=== PATIENT | male | born 1985 | race Caucasian/White ===

== ENCOUNTER 2019-10-31 07:08 | Day surgery (SDC) | payer OTHER, SELFPAY ==
[~2019-10-31] VITALS: Ht 180.3 cm; Wt 111.1 kg
[2019-10-31] MEDS ORDERED: SIMETHICONE 40 MG/0.6 ML ML ONE (07:32)
[2019-10-31] MEDS ORDERED: fentaNYL CITRATE/PF 100 MCG/2 ML AMP ONE (07:32)
[2019-10-31] MEDS ORDERED: MIDAZOLAM HCL 5 MG/5 ML VIAL ONE (07:32)
[2019-10-31] MEDS ORDERED: MEPERIDINE HCL/PF 100 MG/ML AMP ONE (08:42)
[2019-10-31 08:55] VITALS: BP_SYST 121
[2019-10-31] MEDS ORDERED: DIPHENHYDRAMINE INJ 50 MG/ML VIAL ONE (08:58)
== END 2019-10-31 09:40 | disposition home or self-care (01) ==
LOC: SDS 07:08 → SMU 07:10 → SDS 09:40
PROVIDERS: ATTEND Internal Medicine Gastroenterology
DX: R13.10 Dysphagia, unspecified (principal); K29.70 Gastritis, unspecified, without bleeding; K21.9 Gastro-esophageal reflux disease without esophagitis; Z20.828 Contact with and (suspected) exposure to other viral communicable diseases; Z79.899 Other long term (current) drug therapy
CPT/HCPCS: 43239; 88305; 88312; 88313; G0378; J1200; J2175; J2250; U0003; J3010